=== PATIENT | female | born 1955 | race Caucasian/White ===

== ENCOUNTER 2018-02-02 13:16 | Day surgery (SDC) | payer OTHER ==
[2018-02-02] MEDS ORDERED: LIDOCAINE 2% (SDV) 5 ML INJ ×2 (15:36)
[2018-02-02] MEDS ORDERED: PROPOFOL 60 ML ×2 (15:36)
== END 2018-02-02 17:35 | disposition home or self-care (01) ==
LOC: GIL 13:16
DX: Z12.11 Encounter for screening for malignant neoplasm of colon (principal); R19.4 Change in bowel habit (principal); K29.30 Chronic superficial gastritis without bleeding; K44.9 Diaphragmatic hernia without obstruction or gangrene; K21.9 Gastro-esophageal reflux disease without esophagitis; K57.90 Diverticulosis of intestine, part unspecified, without perforation or abscess without bleeding; K64.8 Other hemorrhoids; I10 Essential (primary) hypertension; E66.9 Obesity, unspecified; Z68.34 Body mass index [BMI] 34.0-34.9, adult; Z79.82 Long term (current) use of aspirin
CPT/HCPCS: 43239; 88305; 88312

== ENCOUNTER 2019-02-01 05:48 | Inpatient (IN) | payer OTHER ==
[2019-02-01] MEDS: GABAPENTIN 300 MG CAP PO ×2 (06:39→20:29)
[2019-02-01] MEDS: DEXAMETHASONE 1 MG TAB PO (06:39)
[2019-02-01] MEDS ORDERED: CA CHLORIDE 10% 10 ML SYRINGE (06:54)
[2019-02-01] MEDS ORDERED: THROMBIN (BOVINE) 5,000 UNIT VIAL TP (06:54)
[2019-02-01] MEDS ORDERED: IPRATROPIUM (NEB) 0.5 MG/2.5 ML AMP HHN (07:00)
[2019-02-01] MEDS ORDERED: OXYCODONE/ACETAMINOPHEN (5/325) TAB PO ×2 (07:00)
[2019-02-01] MEDS ORDERED: LABETALOL HCL 20MG INJ IV (07:00)
[2019-02-01] MEDS ORDERED: TRIMETHOBENZAMIDE 100 MG/ML VIAL IM (07:00)
[2019-02-01] MEDS ORDERED: EPHEDrine SULFATE 50 MG/5 ML SYG IV (07:00)
[2019-02-01] MEDS ORDERED: MEPERIDINE 25 MG INJ IV (07:00)
[2019-02-01] MEDS ORDERED: MIDAZOLAM 1 MG/ML 2 ML INJ IV (07:00)
[2019-02-01] MEDS ORDERED: HYDROmorphONE 1 MG/5 ML IV SYRINGE IV ×3 (07:00)
[2019-02-01] MEDS ORDERED: FENTAnyl 50 MCG/ML VIAL IV ×3 (07:00)
[2019-02-01] MEDS ORDERED: ALBUTEROL 0.083% (NEB) 2.5 MG/3 ML AMP HHN (07:00)
[2019-02-01] MEDS ORDERED: hydrALAzine 20 MG INJ IV (07:00)
[2019-02-01] MEDS ORDERED: DIPHENHYDRAMINE 50 MG INJ IV ×2 (07:00→09:00)
[2019-02-01] MEDS ORDERED: PROPOFOL 20 ML (07:01)
[2019-02-01] MEDS ORDERED: ONDANSETRON 4 MG INJ (07:01)
[2019-02-01] MEDS ORDERED: GLYCOPYRROLATE 0.4 MG INJ (07:01)
[2019-02-01] MEDS ORDERED: FENTAnyl 50 MCG/ML VIAL ×2 (07:01→08:14)
[2019-02-01] MEDS ORDERED: CEFAZOLIN 1 GM INJ (07:01)
[2019-02-01] MEDS ORDERED: DEXAMETHASONE 4 MG/ML 5 ML INJ (07:01)
[2019-02-01] MEDS ORDERED: ROCURONIUM 50 MG INJ (07:01)
[2019-02-01] MEDS ORDERED: MIDAZOLAM 1 MG/ML 2 ML INJ (07:01)
[2019-02-01] MEDS ORDERED: morphine SULFATE/PF (10 MG/10 ML) INJ (07:02)
[2019-02-01] MEDS ORDERED: CEFAZOLIN 2 GM/50 ML (PMX) 50 ML IVPB (07:30)
[2019-02-01] MEDS ORDERED: GABAPENTIN 300 MG CAP PO (07:30)
[2019-02-01] MEDS ORDERED: DEXAMETHASONE 1 MG TAB PO (07:30)
[2019-02-01] MEDS ORDERED: SOD CHLORIDE 0.9% 100 ML, TRANEXAMIC ACID 3,000 MG IRR (07:30)
[2019-02-01] MEDS: TRANEXAMIC ACID 1GM/100ML(PMX) 100 ML IVPB ×2 (08:22→08:47)
[2019-02-01] MEDS: BUPIVACAINE 0.5% (SDV) 30 ML, morphine SULFATE (PF) 8 MG, EPINEPHrine 0.3 MG, KETOROLAC... IRR (08:22)
[2019-02-01] MEDS ORDERED: MAGNESIUM HYDROXIDE 30ML CUP PO (09:00)
[2019-02-01] MEDS ORDERED: CYCLOBENZAPRINE 10 MG TAB PO (09:00)
[2019-02-01] MEDS ORDERED: HYDROmorphONE 1 MG/ML SYG IV (09:00)
[2019-02-01] MEDS ORDERED: oxyCODONE 5 MG TAB PO ×2 (09:00)
[2019-02-01] MEDS ORDERED: NACL 0.9% 3 ML SYG IV (09:00)
[2019-02-01] MEDS ORDERED: ONDANSETRON 4 MG INJ IV (09:00)
[2019-02-01] MEDS ORDERED: ZOLPIDEM 5 MG TAB PO (09:00)
[2019-02-01] MEDS ORDERED: CEFAZOLIN 1 GM/50 ML (PMX) 50 ML IVPB (09:00)
[2019-02-01 09:35] LABS: ADD MAN DIFF? NO
[2019-02-01 09:39] LABS: BASOPHIL # 0.1 10^3/ul (0.0-0.1); BASOPHILS % 0.4 % (0.0-2.0); EOSINOPHILS % 0.2 % (0.0-7.0); HEMATOCRIT 33.6 % (37.0-47.0); HEMOGLOBIN 10.6 g/dl (12.0-16.0); LYMPHOCYTES # 2.2 10^3/ul (0.8-2.9); LYMPHOCYTES % 13.4 % (15.0-51.0); MEAN CORPUSCULAR HEMOGLOBIN 27.8 pg (29.0-33.0); MEAN CORPUSCULAR HGB CONC 31.5 g/dl (32.0-37.0); MEAN CORPUSCULAR VOLUME 88.2 fl (82.0-101.0); MONOCYTE # 0.4 10^3/ul (0.3-0.9); MONOCYTES % 2.2 % (0.0-11.0); NEUTROPHIL # 13.7 10^3/ul (1.6-7.5); NEUTROPHILS % 82.6 % (39.0-77.0); PLATELET COUNT 198 10^3/UL (140-415); RED BLOOD COUNT 3.81 10^6/ul (4.20-5.40); RED CELL DISTRIBUTION WIDTH 14.2 % (11.5-14.5)
[2019-02-01 09:39] LABS: WHITE BLOOD COUNT 16.6 10^3/ul (4.8-10.8)
[2019-02-01] MEDS: ACETAMINOPHEN 1000MG/100ML IV 100 ML IVPB ×3 (09:57→23:59)
[2019-02-01] MEDS: LISINOPRIL 5 MG TAB PO (09:58)
[2019-02-01] MEDS: SENNA/DOCUSATE NA (8.6MG/50MG) TAB PO ×2 (09:58→20:29)
[2019-02-01] MEDS: LACTATED RINGER'S 1,000 ML IV ×2 (11:01→14:12)
[2019-02-01] MEDS: DEXAMETHASONE 2 MG TAB PO ×3 (12:00→23:58)
[2019-02-01] MEDS: ONDANSETRON 4 MG INJ IV (14:15)
[2019-02-01] MEDS: CEFAZOLIN 1 GM/50 ML (PMX) 50 ML IVPB ×2 (15:51→23:58)
[2019-02-02] MEDS: LACTATED RINGER'S 1,000 ML IV ×2 (00:50→14:57)
[2019-02-02] MEDS: CEFAZOLIN 1 GM/50 ML (PMX) 50 ML IVPB (05:34)
[2019-02-02] MEDS: oxyCODONE 5 MG TAB PO (05:35)
[2019-02-02] MEDS: DEXAMETHASONE 2 MG TAB PO (05:35)
[2019-02-02 06:04] LABS: ADD MAN DIFF? NO
[2019-02-02 06:09] LABS: BASOPHILS % 0.1 % (0.0-2.0); HEMATOCRIT 28.8 % (37.0-47.0); HEMOGLOBIN 9.4 g/dl (12.0-16.0); LYMPHOCYTES # 1.1 10^3/ul (0.8-2.9); LYMPHOCYTES % 9.7 % (15.0-51.0); MEAN CORPUSCULAR HEMOGLOBIN 27.6 pg (29.0-33.0); MEAN CORPUSCULAR HGB CONC 32.6 g/dl (32.0-37.0); MEAN CORPUSCULAR VOLUME 84.7 fl (82.0-101.0); MEAN PLATELET VOLUME 10.5 fl (7.4-10.4); MONOCYTE # 0.6 10^3/ul (0.3-0.9); MONOCYTES % 4.8 % (0.0-11.0); NEUTROPHIL # 9.7 10^3/ul (1.6-7.5); PLATELET COUNT 215 10^3/UL (140-415); RED CELL DISTRIBUTION WIDTH 13.9 % (11.5-14.5)
[2019-02-02 06:09] LABS: WHITE BLOOD COUNT 11.4 10^3/ul (4.8-10.8)
[2019-02-02] MEDS: ASPIRIN (EC) 325 MG TAB PO (08:36)
[2019-02-02] MEDS: SENNA/DOCUSATE NA (8.6MG/50MG) TAB PO (08:36)
[2019-02-02] MEDS: LISINOPRIL 5 MG TAB PO (08:37)
[2019-02-03] MEDS ORDERED: MAGNESIUM HYDROXIDE 30ML CUP PO (21:00)
== END 2019-02-02 17:20 | disposition home or self-care (01) | DRG 470 ==
LOC: REC 05:48 → MS1 10:36
PROVIDERS: Orthopaedic Surgery
PROC: 0SR904A Replacement of Right Hip Joint with Ceramic on Polyethylene Synthetic Substitute, Uncemented, Open Approach (ICD-10-PCS; principal; 2019-02-01 07:00)
DX: M16.11 Unilateral primary osteoarthritis, right hip (principal); E66.9 Obesity, unspecified; I10 Essential (primary) hypertension; Z68.31 Body mass index [BMI] 31.0-31.9, adult
CPT/HCPCS: 72170; 73530; 85025; 86999; 87086; 88304; 88311; 97110; 97116; 97161

== ENCOUNTER 2019-02-09 16:20 | Inpatient (IN) | payer OTHER ==
[2019-02-09 19:28] LABS: ADD MAN DIFF? NO
[2019-02-09 19:32] LABS: BASOPHILS % 0.4 % (0.0-2.0); EOSINOPHILS # 0.1 10^3/ul (0.0-0.5); EOSINOPHILS % 0.6 % (0.0-7.0); HEMATOCRIT 28.3 % (37.0-47.0); HEMOGLOBIN 8.8 g/dl (12.0-16.0); LYMPHOCYTES % 19.5 % (15.0-51.0); MEAN CORPUSCULAR HEMOGLOBIN 27.8 pg (29.0-33.0); MEAN CORPUSCULAR HGB CONC 31.1 g/dl (32.0-37.0); MEAN CORPUSCULAR VOLUME 89.3 fl (82.0-101.0); MEAN PLATELET VOLUME 8.9 fl (7.4-10.4); MONOCYTE # 0.9 10^3/ul (0.3-0.9); MONOCYTES % 8.9 % (0.0-11.0); NEUTROPHIL # 7.3 10^3/ul (1.6-7.5); NEUTROPHILS % 69.5 % (39.0-77.0); PLATELET COUNT 319 10^3/UL (140-415); RED BLOOD COUNT 3.17 10^6/ul (4.20-5.40); RED CELL DISTRIBUTION WIDTH 14.3 % (11.5-14.5)
[2019-02-09 19:32] LABS: WHITE BLOOD COUNT 10.5 10^3/ul (4.8-10.8)
[2019-02-09 19:51] LABS: INR 0.95; PROTIME 12.8 Sec (11.9-14.9)
[2019-02-09 19:52] LABS: PARTIAL THROMBOPLASTIN TIME 32.5 Sec (23.0-35.0)
[2019-02-09 20:06] LABS: LACTIC ACID 1.4 mmol/L (0.5-2.0)
[2019-02-09 20:13] LABS: ALANINE AMINOTRANSFERASE 20 IU/L (13-69); ALBUMIN 3.9 g/dl (3.3-4.9); ALBUMIN/GLOBULIN RATIO 1.34; ALKALINE PHOSPHATASE 102 IU/L (42-121); ANION GAP 10 (5-13); ASPARTATE AMINO TRANSFERASE 21 IU/L (15-46); BILIRUBIN,INDIRECT 0.1 mg/dl (0-1.1); BILIRUBIN,TOTAL 0.1 mg/dl (0.2-1.3); BLOOD UREA NITROGEN 13 mg/dl (7-20); CALCIUM 9.1 mg/dl (8.4-10.2); CARBON DIOXIDE 25 mmol/L (21-31); CHLORIDE 105 mmol/L (97-110); Estimated GFR > 60 mL/min (>60); GLUCOSE 106 mg/dl (70-220); POTASSIUM 4.3 mmol/L (3.5-5.1); SODIUM 140 mmol/L (135-144); TOTAL PROTEIN 6.8 g/dl (6.1-8.1)
[2019-02-09 20:24] LABS: TROPONIN-I < 0.012 ng/ml (0.000-0.120)
[2019-02-09] MEDS: CEFTRIAXONE 2 GM/50 ML (PMX) 50 ML IVPB (20:29)
[2019-02-09 20:34] LABS: URINE BLOOD (Dip) POC Trace-intact (NEGATIVE); URINE GLUCOSE (Dip) POC Negative (NEGATIVE); URINE KETONES (Dip) POC Negative (NEGATIVE); URINE LEUKOCYTE EST (Dip) POC 1+ (NEGATIVE); URINE NITRITE (Dip) POC Negative (NEGATIVE); URINE TOTAL PROTEIN POC Negative (NEGATIVE)
[2019-02-09 20:34] LABS: URINE PH (Dip) POC 5.5 (5.0-8.5)
[2019-02-09] MEDS: VANCOMYCIN 1 GM (PMX) 250 ML IVPB (21:00)
[2019-02-09] MEDS ORDERED: CYCLOBENZAPRINE 10 MG TAB PO (22:00)
[2019-02-09] MEDS ORDERED: NACL 0.9% 3 ML SYG IV (22:00)
[2019-02-09] MEDS ORDERED: DOCUSATE SODIUM 100 MG CAP PO (22:00)
[2019-02-09] MEDS ORDERED: VANCOMYCIN IV PER PHARMACY XX (22:00)
[2019-02-09] MEDS ORDERED: ONDANSETRON 4 MG INJ IV (22:00)
[2019-02-09 22:49] LABS: LACTIC ACID 1.1 mmol/L (0.5-2.0)
[2019-02-10] MEDS: SOD CHLORIDE 0.9% 1,000 ML IV ×2 (00:46→13:48)
[2019-02-10] MEDS: morphine 2 MG INJ IV (00:47)
[2019-02-10] MEDS: PIPER-TAZO 3.375 GM IV (PMX) 100 ML IVPB ×3 (05:31→22:03)
[2019-02-10 05:46] LABS: ADD MAN DIFF? NO
[2019-02-10 05:55] LABS: BASOPHILS % 0.4 % (0.0-2.0); EOSINOPHILS # 0.1 10^3/ul (0.0-0.5); EOSINOPHILS % 1.4 % (0.0-7.0); HEMATOCRIT 25.7 % (37.0-47.0); LYMPHOCYTES # 2.6 10^3/ul (0.8-2.9); LYMPHOCYTES % 28.5 % (15.0-51.0); MEAN CORPUSCULAR HEMOGLOBIN 27.5 pg (29.0-33.0); MEAN CORPUSCULAR HGB CONC 31.1 g/dl (32.0-37.0); MEAN CORPUSCULAR VOLUME 88.3 fl (82.0-101.0); MEAN PLATELET VOLUME 9.7 fl (7.4-10.4); MONOCYTE # 0.9 10^3/ul (0.3-0.9); MONOCYTES % 9.9 % (0.0-11.0); NEUTROPHIL # 5.4 10^3/ul (1.6-7.5); NUCLEATED RED BLOOD CELLS% 0.2 /100WBC (0.0-0.0); PLATELET COUNT 307 10^3/UL (140-415); RED BLOOD COUNT 2.91 10^6/ul (4.20-5.40); RED CELL DISTRIBUTION WIDTH 14.5 % (11.5-14.5)
[2019-02-10 05:55] LABS: WHITE BLOOD COUNT 9.1 10^3/ul (4.8-10.8)
[2019-02-10 06:19] LABS: ALANINE AMINOTRANSFERASE 14 IU/L (13-69); ALBUMIN 3.3 g/dl (3.3-4.9); ALBUMIN/GLOBULIN RATIO 1.26; ALKALINE PHOSPHATASE 78 IU/L (42-121); ANION GAP 11 (5-13); ASPARTATE AMINO TRANSFERASE 19 IU/L (15-46); BILIRUBIN,INDIRECT 0.1 mg/dl (0-1.1); BILIRUBIN,TOTAL 0.1 mg/dl (0.2-1.3); BLOOD UREA NITROGEN 13 mg/dl (7-20); CALCIUM 8.5 mg/dl (8.4-10.2); CARBON DIOXIDE 25 mmol/L (21-31); CHLORIDE 107 mmol/L (97-110); CREATININE 0.69 mg/dl (0.44-1.00); Estimated GFR > 60 mL/min (>60); GLUCOSE 102 mg/dl (70-220); MAGNESIUM 2.1 mg/dl (1.7-2.5); POTASSIUM 4.1 mmol/L (3.5-5.1); SODIUM 143 mmol/L (135-144); TOTAL PROTEIN 5.9 g/dl (6.1-8.1)
[2019-02-10] MEDS: LISINOPRIL 5 MG TAB PO (08:37)
[2019-02-10] MEDS: HYDROCODONE/APAP (5/325) TAB PO (13:48)
[2019-02-10] MEDS: VANCOMYCIN 1 GM 250 ML IVPB (18:09)
[2019-02-10] MEDS: BISACODYL (EC) 5 MG TAB PO (18:18)
[2019-02-10] MEDS: ACETAMINOPHEN 325 MG TAB PO (22:06)
[2019-02-11] MEDS: SOD CHLORIDE 0.9% 1,000 ML IV ×2 (02:40→06:15)
[2019-02-11 05:21] LABS: ADD MAN DIFF? NO
[2019-02-11 05:34] LABS: WHITE BLOOD COUNT 7.2 10^3/ul (4.8-10.8)
[2019-02-11 05:34] LABS: HEMOGLOBIN 8.5 g/dl (12.0-16.0); MEAN CORPUSCULAR HEMOGLOBIN 27.2 pg (29.0-33.0); MEAN CORPUSCULAR HGB CONC 30.4 g/dl (32.0-37.0); MEAN CORPUSCULAR VOLUME 89.7 fl (82.0-101.0); RED BLOOD COUNT 3.12 10^6/ul (4.20-5.40)
[2019-02-11 05:35] LABS: BASOPHILS % 0.6 % (0.0-2.0); EOSINOPHILS # 0.1 10^3/ul (0.0-0.5); EOSINOPHILS % 1.7 % (0.0-7.0); LYMPHOCYTES # 2.6 10^3/ul (0.8-2.9); LYMPHOCYTES % 36.3 % (15.0-51.0); MEAN PLATELET VOLUME 9.5 fl (7.4-10.4); MONOCYTE # 0.7 10^3/ul (0.3-0.9); NEUTROPHIL # 3.7 10^3/ul (1.6-7.5); NEUTROPHILS % 51.7 % (39.0-77.0); PLATELET COUNT 340 10^3/UL (140-415); RED CELL DISTRIBUTION WIDTH 14.4 % (11.5-14.5)
[2019-02-11 05:49] LABS: IRON 40 ug/dl (35-150)
[2019-02-11 05:59] LABS: % IRON SATURATION 12 % SAT (22-52); TOTAL IRON BINDING CAPACITY 325 ug/dl (241-421)
[2019-02-11] MEDS: PIPER-TAZO 3.375 GM IV (PMX) 100 ML IVPB (06:05)
[2019-02-11 06:22] LABS: FERRITIN 52.7 ng/ml (11.1-264.0)
[2019-02-11] MEDS: LISINOPRIL 5 MG TAB PO (08:28)
[2019-02-11] MEDS: ENOXAPARIN 40 MG/0.4 ML SYG SC (08:28)
[2019-02-11] MEDS: HYDROCODONE/APAP (5/325) TAB PO (11:55)
[2019-02-11] MEDS: CEPHALEXIN 500 MG CAP PO (11:55)
== END 2019-02-11 16:50 | disposition home or self-care (01) | DRG 863 ==
LOC: E/R 16:20 → MS1 21:20
DX: T81.49XA Infection following a procedure, other surgical site, initial encounter (principal); N30.00 Acute cystitis without hematuria; E66.9 Obesity, unspecified; Z68.38 Body mass index [BMI] 38.0-38.9, adult; M19.90 Unspecified osteoarthritis, unspecified site; I10 Essential (primary) hypertension; D64.9 Anemia, unspecified; Z96.641 Presence of right artificial hip joint
CPT/HCPCS: 36415; 71045; 73510; 80053; 81003; 82728; 83540; 83605; 83735; 84484; 85025; 85610; 85730; 87040; 87070; 87081; 87086; 93005; 96374; 97116; 97161; 99285-25